=== PATIENT | female | born 1995 | race Caucasian/White ===

== ENCOUNTER 2019-10-02 18:16 | Emergency (ER) | payer BC, SELFPAY ==
[2019-10-02 18:34] VITALS: BP 114/73; PULSE 89; RESP 14; TEMP 37.2; O2SAT 98
--- NOTE | 2019-10-02 18:40 | ED.URI ---
HPI - URI/Sore Throat General Chief Complaint: Upper Respiratory Infection Stated Complaint: sore throat ear pain Time Seen by Provider: 10/02/19 18:43 Source: patient Mode of arrival: ambulatory Limitations: clinical condition History of Present Illness HPI Narrative: Loli Reyes is a 24 yo female with no PMH, came with sore throat, post nasal drainage, swollen lymph nodes x 1 week-works sales counter at [employer] Related Data Home Medications Medication Instructions Recorded Confirmed methylphenidate HCl 10 mg PO BID 10/02/19 10/02/19 norethindrone-e.estradiol-iron 1 tablet PO DAILY 10/02/19 10/02/19 [Aurovela Fe 1-20 (28)] sertraline 50 mg PO DAILY 10/02/19 10/02/19 Allergies Allergy/AdvReac Type Severity Reaction Status Date / Time No Known Allergies Allergy Verified 10/02/19 18:50 Review of Systems Review of Systems: Narrative: CONSTITUTIONAL: Denies fever, chills, sweats. EYES: Denies visual changes, redness, discharge. ENT: Denies rhinorrhea, congestion, has sore throat, has right otalgia. CARDIOVASCULAR: Denies chest pain, palpitations, edema. RESPIRATORY: Denies dyspnea, wheezing, no cough GASTROINTESTINAL: Denies abdominal pain, nausea, vomiting, diarrhea. GENITOURINARY: Denies dysuria, hematuria, abnormal discharge SKIN: Denies rash or itching. NEUROLOGIC: Denies numbness, or focal weakness. PSYCHIATRIC: Denies anxiety or depression. [facility] Family History Family History Other No acute medical problems Social History Social History Smoking status: Never smoker Alcohol intake: current Comments At time of signature, I agree with nursing past medical, surgical, social and family history. There is no relevant family history pertinent to the presenting complaint. Exam Narrative: Exam Narrative: GENERAL: This is a well-nourished, well-developed patient, in mild distress. HEAD: normocephalic, atraumatic. EYES: Sclera clear/white. Vision is grossly intact. EARS: External ears normal, left auditory canals clear and without drainage, right appears red and mildly edematous- TMs normal without perforation. Hearing grossly intact. NOSE: External nose normal without nasal discharge, nares without redness, no rhinorrhea. THROAT: Mucous membranes moist, posterior pharynx erythema; right-sided lymph edema anterior cervical chain NECK: Neck supple, CARDIOVASCULAR: Regular rate and rhythm without murmurs, gallops, or rubs. RESPIRATORY: Clear to auscultation. Breath sounds equal bilaterally. No wheezes, rales, or rhonchi. GASTROINTESTINAL: Abdomen soft, non-tender, SKIN: warm, intact with no suspicious lesions or rash, good texture and turgor. NEURO: awake, alert, and oriented to person, place and time. There were no obvious focal neurologic abnormalities. Steady gait EXTREMITIES: Normal range of motion. BACK: Nontender without deformity Course Course Emergency Course: Strep culture negative Started on polymyxin eardrops, prednisone taper, reviewed Flonase Vital Signs Vital signs: Vital Signs Temperature 98.9 F 10/02/19 18:34 Pulse Rate 89 10/02/19 18:34 Respiratory Rate 14 10/02/19 18:34 Blood Pressure 114/73 10/02/19 18:34 Pulse Oximetry 98 10/02/19 18:34 Temperature 98.9 F 10/02/19 18:34 Pulse Rate 89 10/02/19 18:34 Respiratory Rate 14 10/02/19 18:34 Blood Pressure 114/73 10/02/19 18:34 Pulse Oximetry 98 10/02/19 18:34 MDM - URI/Sore Throat Differential Diagnosis Differential diagnosis: Likely upper respiratory infection, otitis media, sinusitis, viral infection, pharyngitis and other Lab Data Labs: Strep Screen Presumptive Negative *(Reference Range: Negative)* Discharge Plan Discharge Clinical Impression: Upper respiratory infection Qualifiers: URI type: unspecified viral URI Qualified Cod
== END 2019-10-02 19:05 | disposition home or self-care (01) ==
PROVIDERS: Emergency Provider Nurse Practitioner; PCP Internal Medicine
DX: J06.9 Acute upper respiratory infection, unspecified (principal); H66.001 Acute suppurative otitis media without spontaneous rupture of ear drum, right ear
CPT/HCPCS: 87081; 87880; 99213; G0463